=== PATIENT | female | born 1955 | race Caucasian/White ===

== ENCOUNTER 2020-06-21 19:14 | Emergency (ER) | payer MEDICAID ==
--- NOTE | 2020-06-21 20:09 | ER Document Report ---
ED Headache - General Chief Complaint: Fever Stated Complaint: HEADACHE,CHILLS Time Seen by Provider: 06/21/20 20:08 Mode of Arrival: Ambulatory Information source: Patient Notes: 06/21/20 19:48 - ED Nursing Note by MATILDE DUFFY Num: [id number] : 1955 Patient Age: 64 Pt presents to ED for fever, chills, BORREGO, and weakness for 2 days. The pt denies cough or other symptoms. The pt recently traveled from [place] 3 days ago. The pt has a hx of HTN, DM, and liver transplant. The pt denies sick contact. The pt is aox4. Resps even and unlabored. my notes 64-year-old black female who is a liver transplant recipient of 11 years on CellCept cyclosporine mycophenolate and has been doing well until the past 2 to 3 days. She traveled from [place] to [place] where her daughter and son live. They have children in their house but none of whom are sick. She traveled with her 3 older sons as well who are doing well. When they arrived they had to put down a blind and sickly dog at the house at the heat treat supervisor's. Patient admits to polyuria and dysuria. She denies any chest pain sore throat but admits to fever and chills myalgia headache and weakness. She reports when she stopped at the rest stops along the highway they used social distancing and facemasks; the wound is currently in a pandemic from coronavirus 19.. TRAVEL OUTSIDE OF THE [place] IN LAST 30 DAYS: No - HPI Patient complains to provider of: Headache Onset: Yesterday Onset was: Abrupt Timing: Still present Quality of pain: Achy Severity: Mild - Related Data Allergies/Adverse Reactions: No Known Allergies Allergy (Verified 06/21/20 22:58) Past Medical History - General Information source: Patient - Social History Smoking Status: Former Smoker Cigarette use (# per day): No Chew tobacco use (# tins/day): No Smoking Education Provided: No Frequency of alcohol use: None Drug Abuse: None Lives with: Family Family History: Reviewed & Not Pertinent Patient has suicidal ideation: No Patient has homicidal ideation: No - Past Medical History Cardiac Medical History: Reports: Hx Hypertension Endocrine Medical History: Reports: Hx Diabetes Mellitus Type 2 Past Surgical History: Reports: Hx Thyroid Surgery Review of Systems - Review of Systems Constitutional: See HPI, Fever, Weakness EENT: No symptoms reported Cardiovascular: No symptoms reported Respiratory: No symptoms reported Gastrointestinal: No symptoms reported Genitourinary: No symptoms reported Female Genitourinary: No symptoms reported Musculoskeletal: No symptoms reported Skin: No symptoms reported Hematologic/Lymphatic: No symptoms reported Neurological/Psychological: No symptoms reported Physical Exam - Vital signs Vitals: Temp Pulse Resp BP Pulse Ox 98.9 F 87 18 100/67 98 06/21/20 19:30 06/21/20 19:30 06/21/20 19:30 06/21/20 19:30 06/21/20 19:30 Interpretation: Hypertensive, Febrile - HEENT Head: Normocephalic, Atraumatic Eyes: Normal Pupils: PERRL Ears: Normal Sinus: Normal Nasal: Normal Mouth/Lips: Normal Mucous membranes: Normal Pharynx: Normal Neck: Normal - Respiratory Respiratory status: No respiratory distress Chest status: Nontender Breath sounds: Normal Chest palpation: Normal - Cardiovascular Rhythm: Regular Heart sounds: Normal auscultation Murmur: No - Abdominal Inspection: Healed incision - old surgical scars - Rectal Hemorrhoids: Other - deferred - Genitourinary [place] exam: Other - deferred - Back Back: Normal - Extremities General upper extremity: Normal inspection General lower extremity: Normal inspection - Neurological Neuro grossly intact: Yes Cognition: Normal Orientation: AAOx4 [place] Coma Scale Eye Opening: Spontaneous [place] Coma Scale Verbal: Oriented [place] Coma Scale Motor: Obeys Commands [place] Coma Scale Total: 15 Speech: Normal Motor strength normal: LUE, RUE, LLE, RLE Sensory: Normal - Psychological Associated symptoms: Normal affect - Skin Skin Temperature: Warm Skin Moisture: Dry Course - Vital Signs Vital signs: Temp Pulse Resp BP Pulse Ox 98.4 F 95 18 147/82 H 99 06/22/20 01:35 06/22/20 01:35 06/22/20 01:35 06/22/20 01:35 06/22/20 01:35 - Laboratory Result Diagrams: 06/22/20 00:06 06/22/20 00:51 Laboratory results interpreted by me: 06/21/20 06/22/20 06/22/20 22:55 00:06 00:51 Plt Count 81 L [place] % (Auto) 16.0 H BUN 49 H Creatinine 1.81 H Est GFR ( Amer) 34 L Est GFR (MDRD) Non-Af 28 L Direct Bilirubin 0.5 H AST 53 H ALT 83 H Alkaline Phosphatase 127 H Total Protein 8.4 H Urine Protein 100 H Urine Blood MODERATE H Urine Urobilinogen 4.0 H Leukocyte Esterase Rfl LARGE H - Diagnostic Test Radiology reviewed: Reports reviewed - cxr wnl Critical Care Note - Critical Care Note Comments: I advised pt of her labs and pending denis virus; I advised quarentine x 2 days Discharge - Discharge Clinical Impression: Fever Qualifiers: Fever type: unspecified Qualified Code(s): R50.9 - Fever, unspecified Headache Qualifiers: Headache type: unspecified Headache chronicity pattern: acute headache Intractability: not intractable Qualified Code(s): R51 - Headache UTI (urinary tract infection) Qualifiers: Urinary tract infection type: acute cystitis Hematuria presence: without hematuria Qualified Code(s): N30.00 - Acute cystitis without hematuria Condition: Fair Disposition: HOME, SELF-CARE Instructions: Urinary Tract Infection ([facility]) Additional Instructions: Follow-up with personal doctor this week return to ER as needed or if symptoms worsen take your medicines as directed encourage fluids especially since you have a liver transplant. Try to stay quarantined away from any sick people's. Try to drink only water or cranberry juice diluted with water. Try to avoid dr inking any sodas or sweetened/sugared drinks of any kind. Prescriptions: Levofloxacin [Levaquin 500 mg Tablet] 500 mg PO DAILY #7 tablet
--- NOTE | 2020-06-21 20:53 | RADIOLOGY REPORT (SQ) ---
EXAM DESCRIPTION: XR CHEST 1 VIEW COMPLETED DATE/TME: 06/21/2020 20:12 CLINICAL HISTORY: 64 years Female fever COMPARISON: None. FINDINGS: The cardiomediastinal silhouette appears unremarkable. No consolidating infiltrates or pleural effusions. No pneumothorax. IMPRESSION: No acute abnormality is identified.
[2020-06-21 23:14] LABS: APPEARANCE,URINE CLOUDY; BILIRUBIN,URINE NEGATIVE (NEGATIVE); COLOR,URINE AMBER; GLUCOSE, URINE NEGATIVE (NEGATIVE); KETONES,URINE NEGATIVE (NEGATIVE); PROTEIN,URINE 100 mg/dL (NEGATIVE); URINE SPECIFIC GRAVITY 1.023
[2020-06-22 00:20] LABS: ABSOLUTE LYMPHOCYTES (AUTO) 0.9 10^3/uL (0.5-4.7); ABSOLUTE MONOCYTES (AUTO) 0.8 10^3/uL (0.1-1.4); ABSOLUTE NEUT (AUTO) 3.5 10^3/uL (1.7-8.2); BASOPHILS % (AUTO) 0.2 % (0-2); EOSINOPHILS % (AUTO) 0.8 % (0-6); HEMATOCRIT 41.6 % (36.0-47.0); HEMOGLOBIN 14.1 g/dL (12.0-15.5); LYMPHOCYTES % (AUTO) 16.5 % (13-45); MEAN CORPUSCULAR HGB CONC 33.8 g/dL (32.0-36.0); MEAN CORPUSCULAR VOLUME 89 fl (80-97); RED BLOOD COUNT 4.68 10^6/uL (3.72-5.28); RED CELL DISTRIBUTION WIDTH 13.4 % (11.5-14.0); SEGMENTED NEUTROPHILS % (AUTO) 66.5 % (42-78); TOTAL CELLS COUNTED % (AUTO) 100 %; WHITE BLOOD COUNT 5.3 10^3/uL (4.0-10.5)
[2020-06-22 00:46] LABS: PLATELET COUNT 81 10^3/uL (150-450)
[2020-06-22] MEDS ORDERED: CEFTRIAXONE INJ 1000 MG VIAL IM ONE (01:12)
[2020-06-22] MEDS ORDERED: LEVOFLOXACIN 500 MG TABLET PO ONE (01:13)
[2020-06-22 01:14] LABS: ALBUMIN 4.4 g/dL (3.5-5.0); ALKALINE PHOSPHATASE 127 U/L (38-126); ANION GAP 13 (5-19); ASPARTATE AMINO TRANSFERASE 53 U/L (14-36); BILIRUBIN,DIRECT 0.5 mg/dL (0.0-0.4); BILIRUBIN,TOTAL 1.2 mg/dL (0.2-1.3); BLOOD UREA NITROGEN 49 mg/dL (7-20); CALCIUM 8.9 mg/dL (8.4-10.2); CARBON DIOXIDE 22 mmol/L (22-30); CHLORIDE 103 mmol/L (98-107); GLUCOSE 102 mg/dL (75-110); POTASSIUM 4.5 mmol/L (3.6-5.0); TOTAL PROTEIN 8.4 g/dL (6.3-8.2)
[2020-06-22 01:37] VITALS: BP 147/82
[2020-06-22] MEDS ORDERED: LIDOCAINE 1% INJ (10 MG/ML) 10 ML MDV ONE (01:56)
== END 2020-06-22 02:30 | disposition home or self-care (01) ==
LOC: ER 19:14
DX: N30.00 Acute cystitis without hematuria (principal); R50.9 Fever, unspecified; R51 Headache; R53.1 Weakness; R30.0 Dysuria; R35.8 Other polyuria; I10 Essential (primary) hypertension; E11.9 Type 2 diabetes mellitus without complications; Z94.4 Liver transplant status; Z20.828 Contact with and (suspected) exposure to other viral communicable diseases
CPT/HCPCS: 99284; 96372; 36415; 87086; 85025; 87635; 87088; 80053; 81001; 87186; 71045; J0696; C9803